=== PATIENT | female | born 1965 | race Caucasian/White ===

== ENCOUNTER 2020-09-28 20:19 | Emergency (ER) | payer BC ==
[2020-09-28 20:58] VITALS: BP 113/68; PULSE 100
[2020-09-28] MEDS ORDERED: Nitrofurantoin Monohydrate/Macrocrystalline 100 MG Cap PO STA (22:26)
--- NOTE | 2020-09-28 22:32 | EDM.PDOC ---
ED HPI GENERAL MEDICAL PROBLEM - General Chief Complaint: General Stated Complaint: SENT FOR IV Time Seen by Provider: 09/28/20 20:43 Source of Information: Reports: Patient, Other (Paperwork faxed over from the clinic) History Limitations: Reports: No Limitations - History of Present Illness INITIAL COMMENTS - FREE TEXT/NARRATIVE: Ms. John is a pleasant 55-year-old woman who is now sent to the ED by her PCP. The patient states that she has been experiencing 2 to 3 weeks of lower back pain, and about 1 week of right abdominal and flank pain. No other symptoms, such as fever, nausea, vomiting, constipation, diarrhea, or urinary symptoms. She states that she saw her PCP today, and that blood work, a urinalysis, and CT of the abdomen and pelvis with contrast were performed. Paperwork faxed over from the clinic indicates: The patient's CBC is remarkable for leukocytosis of 22.15, with a mildly depressed H/H of 9.8/29.4, and the remainder of her CBC being unremarkable. Her CMP is remarkable for slight hyponatremia of 133, mild hypokalemia of 3.3, and slight hyperglycemia of 101, with the remainder of her CMP being unremarkable. Her CRP is substantially elevated at 38.4. Her urinalysis is remarkable for 2+ occult blood with 10-20 RBCs, 1+ leukocyte esterase with 10-20 WBCs, nitrate negative with few bacteria, and 0-[address] of the abdomen and pelvis with contrast is read by [facility] as "No acute intra- abdominal disease." Here in the ED, the patient is found to be hemodynamically stable, with a slight fever of 100.7 degrees. Her oxygen saturation is 98% on room air. She appears to be comfortable, in no acute distress. Prior to 2 to 3 weeks ago, the patient denies having a recent fever, chills, sore throat, ear pain, nasal or sinus congestion, cough, dyspnea, chest pain, palpitations, nausea, vomiting, constipation, diarrhea, abdominal pain, urinary symptoms, recent weight gain or weight loss, recent bloody bowel movements or black bowel movements, recent joint aches, headaches, or rashes. The patient's PCP is LESLY May. Right Abdomen Pain Score (Numeric/FACES): 7 - Related Data Allergies Allergy/AdvReac Type Severity Reaction Status Date / Time No Known Allergies Allergy Verified 08/19/15 20:29 Home Meds: Home Meds Albuterol Sulfate [Proventil Hfa] 1 puff INH ASDIRECTED 09/28/20 [History] Budesonide/Formoterol [Symbicort 160-4.5 MCG] 1 puff INH ASDIRECTED 09/28/20 [History] nitrofurantoin macrocrystaL [Nitrofurantoin] 1 cap PO Q12H #9 capsule 09/28/20 [Rx] Past Medical History Respiratory History: Reports: COPD (PFT-proven) - Infectious Disease History Infectious Disease History: Reports: Novel Coronavirus (dx's 09/28/2020) - Past Surgical History HEENT Surgical History: Reports: Adenoidectomy, Oral Surgery (dental extractions), Tonsillectomy Female Surgical History: Reports: Section Musculoskeletal Surgical History: Reports: Arthroscopic Knee (bilateral), Carpal Tunnel (bilateral) Social & Family History - Tobacco Use Tobacco Use Status *Q: Former Tobacco User Years of Tobacco use: 34 Packs/Tins Daily: 15 Packs/Tins Daily Comment: Quit 2019 Tobacco Use Comment: Started smoking 1984 - Caffeine Use Caffeine Use: Reports: Coffee, Tea - Alcohol Use Alcohol Use History: Yes Alcohol Use Frequency: Socially (occasionally to excess) - Recreational Drug Use Recreational Drug Use: Yes Drug Use in Last 12 Months: No Recreational Drug Type: Reports: Marijuana/Hashish (last smoked around 2013) - Living Situation & Occupation Living situation: Reports: Single, with Significant Other (Fianc) 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 ED EXAM, GENERAL - Physical Exam Exam: See Below Exam Limited By: No Limitations General Appearance: Alert, WD/WN, No Apparent Distress Eye Exam: Bilateral Eye: EOMI, Normal Inspection Ears: Normal External Exam, Hearing Grossly Normal Nose: Normal Inspection Throat/Mouth: Normal Inspection, Normal Lips, Normal Voice, No Airway Compromise Head: Atraumatic, Normocephalic Neck: Normal Inspection, Full Range of Motion Respiratory/Chest: No Respiratory Distress, Lungs Clear, Normal Breath Sounds, No Accessory Muscle Use Cardiovascular: Normal Peripheral Pulses, Regular Rate, Rhythm, No Edema, No Gallop, No JVD, No Murmur, No Rub Peripheral Pulses: 3+: Radial (L), Radial (R) GI/Abdominal: Normal Bowel Sounds, Soft, No Organomegaly, No Distention, No Abnormal Bruit, No Mass, Tender (Right upper quadrant only, with no significant tenderness elsewhere) Back Exam: Normal Inspection, Full Range of Motion. No: CVA Tenderness (L), CVA Tenderness (R) Extremities: Normal Inspection, Normal Range of Motion, No Pedal Edema, Normal Capillary Refill Neurological: Alert, Oriented, Normal Cognition, No Motor/Sensory Deficits Psychiatric: Normal Affect Skin Exam: Warm, Dry, Intact, Normal Color, No Rash Course - Vital Signs Last Recorded V/S: Last Vital Signs Temp 38.2 C H 09/28/20 20:56 Pulse 100 09/28/20 20:56 Resp 20 09/28/20 20:56 BP 113/68 09/28/20 20:56 Pulse Ox 98 09/28/20 20:56 - Orders/Labs/Meds Labs: Laboratory Tests 09/28/20 09/28/20 Range/Units 14:34 22:38 Lipase 51 L (73-393) U/L SARS-CoV-2 RNA ([facility]) Positive H (NEGATIVE) Meds: Medications Discontinued Medications Generic Name Dose Route Start Last Admin Trade Name Freq PRN Reason Stop Dose Admin Nitrofurantoin Macrocrystals 100 mg 09/28/20 22:26 09/28/20 22:38 Nitrofurantoin Monohydrate/Macrocrystalline 100 Mg Cap PO 09/28/20 22:27 100 mg ONETIME STA Administration - Re-Assessments/Exams Free Text/Narrative Re-Assessment/Exam: 09/28/20 22:27 As above, the patient has had 2 to 3 weeks of lower back pain and 1 week of right abdominal and flank pain. She saw her PCP at the clinic today, where a urinalysis revealed a possible UTI, and her blood work found leukocytosis and an elevated CRP at 38.4, however, a CT of her abdomen and pelvis with oral and IV contrast was completely unremarkable. On examination here in the ED, the patient has some tenderness to her right upper quadrant, but no significant tenderness elsewhere, and no CVA tenderness. The only tests that I would recommend at this time is a lipase level and a swab for the SARS-CoV-2 virus, as COVID-19 can cause a substantially elevated CRP and a variety of symptoms. The patient has not received the COVID vaccine. Even though the CT scan did not find any evidence of pancreatitis, if the patient lipase level is elevated, that could indicate that the patient recently passed a gallstone. In the meantime, I will start the patient on nitrofurantoin for a UTI. 09/28/20 23:28 The patient's swab for the SARS-CoV-2 virus has returned positive. 09/28/20 23:41 Test results discussed with the patient. While the patient may have cystitis, the CT found no evidence of pyelonephritis, therefore I am only recommending nitrofurantoin, not ciprofloxacin and metronidazole. Additionally, I do not see an indication for tamsulosin. I would like the patient to contact Hedy Marleen's office on Thursday morning, to check on the urine culture results, to make sure that nitrofurantoin is an appropriate antibiotic. Because she does not have pyelonephritis, the patient's symptoms are most likely due to COVID-19. Because she has been symptomatic for the better part of 3 weeks, it is possible that she may have "long-COVID", wherein she continues to shed the virus for a prolonged period of time. I therefore recommended that she strictly quarantine until she is feeling better, and not break quarantine until she tests negative. I am not able to say how long that will be. I will provide a note for the patient to be off work. After I discussed that with the patient, the patient give me a considerable amount of pushback, stating that her coworkers are all young and healthy, that they have all been vaccinated, and that she herself is already starting to feel better. I explained that the vaccine is not 100% effective, and while her coworkers may be young and healthy, there is no way for the patient to know if any of her coworker's family or contacts are young and healthy. Perhaps some have a relative or friend who is immunocompromised or otherwise unable to be vaccinated. I emphasized numerous times the need for the patient to strictly quarantine, however, I am not optimistic that she will be compliant. Departure - Departure Time of Disposition: 23:48 Disposition: Home, Self-Care 01 Condition: Good Clinical Impression: COVID-19, Cystitis - Discharge Information *PRESCRIPTION DRUG MONITORING PROGRAM REVIEWED*: Not Applicable *COPY OF PRESCRIPTION DRUG MONITORING REPORT IN PATIENT [place]: Not Applicable Prescriptions: nitrofurantoin macrocrystaL [Nitrofurantoin] 1 cap PO Q12H #9 capsule Instructions: COVID-19 Frequently Asked Questions, What You Should Know About COVID-19 to Protect Yourself and Others - CDC, COVID-19: Quarantine vs. Isolation - [facility] [place] Referrals: Columba Hawley PA-C [Primary Care Provider] - Forms: ED Department Discharge, ED Return to Work/School Form Additional Instructions: You were seen in the emergency room for further evaluation, after some blood work drawn in the clinic this afternoon returned abnormal. Work-up in the ER included a lipase level and a swab for the SARS-CoV-2 virus. Your lipase level returned normal - you do not have pancreatitis, however, your swab for the SARS-CoV-2 virus returned positive, meaning that you have COVID-19. As discussed, it is very important that you strictly quarantine. A note to be off work has been provided to you. You may have a urinary tract infection. You have been started on the antibiotic nitrofurantoin, and a prescription for nitrofurantoin has been sent to the [facility], located in the [facility] grocery store. Take 1 tablet of nitrofurantoin every 12 hours, starting tomorrow morning, 09/29/2020, as prescribed. Finish the entire prescription unless told otherwise by LESLY May. Stay adequately hydrated. It does not really matter what type of fluid you drink. We recommend that you contact the office of your PCP, LESLY May, on 10/01/2020, to have them check on the urine culture result, to make sure that you are on the correct antibiotic. If any other problems, please do not hesitate to return to the ER. Sepsis Event Note (ED) - Evaluation Sepsis Screening Result: No Definite Risk - Focused Exam Vital Signs: Vital Signs Temp Pulse Resp BP Pulse Ox 09/28/20 20:56 38.2 C H 100 20 113/68 98
== END 2020-09-29 00:15 | disposition home or self-care (01) ==
LOC: JD.ED 20:19
DX: U07.1 COVID-19 (principal); N30.90 Cystitis, unspecified without hematuria; J44.9 Chronic obstructive pulmonary disease, unspecified; Z87.891 Personal history of nicotine dependence
CPT/HCPCS: 36415; 83690; 87635; 99284; A9270; U0002

== ENCOUNTER 2023-02-27 23:10 | Emergency (ER) | payer BC, OTHER ==
[2023-02-27] MEDS ORDERED: Ketorolac 60 MG/2 ML SDV IM ONE (23:38)
[2023-02-28 01:39] VITALS: BP 132/85; PULSE 80
== END 2023-02-28 01:25 | disposition home or self-care (01) ==
LOC: JD.ED 23:10
DX: S52.502A Unspecified fracture of the lower end of left radius, initial encounter for closed fracture (principal); S52.602A Unspecified fracture of lower end of left ulna, initial encounter for closed fracture; J44.9 Chronic obstructive pulmonary disease, unspecified; Z86.16 Personal history of COVID-19; Z98.890 Other specified postprocedural states; W01.0XXA Fall on same level from slipping, tripping and stumbling without subsequent striking against object, initial encounter; Y92.89 Other specified places as the place of occurrence of the external cause; Y99.0 Civilian activity done for income or pay
CPT/HCPCS: 73110; 96372; 99283; J1885